=== PATIENT | female | born 1955 | race Caucasian/White ===

== ENCOUNTER 2019-04-16 05:32 | Inpatient (IN) ==
[~2019-04-16] VITALS: Ht 160 cm; Wt 79.4 kg
--- NOTE | 2019-04-16 11:30 | NUR ---
RN MS NOTES RECEIVED PT FROM 2 AMBULANCE STAFF VIA [facility] FROM [facility], PT IS ALERT AND ORIENTED, ABLE TO TRANSFER FROM [facility] TO BED, WITH COMPLAINT OF ABDOMINAL PAIN ON MOVEMENT, STATED THAT SHE DOES NOT HAVE ANY PAIN WHEN SHE IS IN BED, MADE WARM AND COMFORTABLE, ROOM SET UP ORIENTATION PROVIDED TO PT, VERBALIZED UNDERSTANDING, VITAL SIGNS TAKEN AND RECORDED, AWAITING ADMITTING ORDERS FROM MD.
[2019-04-16] MEDS ORDERED: FURO-144 PO (11:39)
[2019-04-16] MEDS ORDERED: SOFO1TAB PO (11:39)
[2019-04-16] MEDS ORDERED: MAGNESIUM HYDROXIDE 30 ML UDC PO PRN (15:00)
[2019-04-16] MEDS ORDERED: ACETAMINOPHEN 325 MG TABLET PO PRN (15:00)
[2019-04-16] MEDS ORDERED: MAG HYDROX/AL HYDROX/SIMETH 30 ML UDC PO PRN (15:00)
[2019-04-16] MEDS ORDERED: Z GUARD REMEDY 2 OZ OINT TP PRN (15:00)
[2019-04-16] MEDS ORDERED: ONDANSETRON HCL/PF 4 MG/2 ML VIAL IVP PRN (15:00)
[2019-04-16] MEDS ORDERED: HYDROCODONE/APAP 5/325MG 1 EACH TABLET PO PRN (15:00)
[2019-04-16] MEDS ORDERED: ZOLPIDEM TARTRATE 5 MG TABLET PO PRN (15:00)
[2019-04-16] MEDS ORDERED: MORPHINE SULFATE INJ 2 MG/ML DISP.SYRIN IV PRN (15:00)
[2019-04-16] MEDS: IV NS 0.9% 1,000 ML IV PRN (15:59)
[2019-04-16 16:00] VITALS: BP 116/57
[2019-04-16] MEDS: FAMOTIDINE/PF INJ 20 MG/2 ML VIAL IV SCH (17:00)
[2019-04-16 17:01] LABS: BASOPHILS # (AUTO) 0.1 /CMM (0.0-0.2); BASOPHILS % (AUTO) 1.3 % (0.0-2.0); EOSINOPHILS % (AUTO) 1.2 % (0.0-6.0); HEMATOCRIT 31 % (33-45); HEMOGLOBIN 10.2 g/dL (11.5-14.8); LYMPHOCYTES # (AUTO) 0.6 /CMM (0.8-4.8); LYMPHOCYTES % (AUTO) 12.4 % (20.0-44.0); MEAN CORPUSCULAR HGB CONC 33 g/dl (31.0-36.0); MEAN CORPUSCULAR VOLUME 110 fL (82-100); MONOCYTES # (AUTO) 0.5 /CMM (0.1-1.30); MONOCYTES % (AUTO) 11.4 % (2.0-12.0); NEUTROPHILS # (AUTO) 3.3 /CMM (1.8-8.9); NEUTROPHILS % (AUTO) 73.7 % (43.0-81.0); PLATELET COUNT (AUTO) 120 /CMM (150-450); RED BLOOD CELL COUNT(AUTO) 2.81 MIL/uL (4.0-5.2); WHITE BLOOD COUNT (AUTO) 4.5 K/uL (4.3-11.0)
--- NOTE | 2019-04-16 18:06 | NUR ---
RN MS NOTES PT IN BED, ASLEEP, EASY TO AROUSE, ALERT AND ORIENTED, NO COMPLAINT OF PAIN AT THIS TIME, NO NAUSEA OR VOMITING, ADMITTING ORDERS RECEIVED FROM DR. ROSALES, PT INFORMED OF PLAN OF CARE, VERBALIZED UNDERSTANDING, IV FLUIDS INFUSING WELL, SEEN BY MINESH TOOL ENGINE LATHE SET UP OPERATOR, ALL NEEDS ATTENDED.
[2019-04-16 18:11] LABS: THYROID STIMULATING HORMONE 3.186 uIU/mL (0.358-3.74)
[2019-04-16 18:13] LABS: ALBUMIN 1.5 g/dL (3.4-5.0); BILIRUBIN,TOTAL 1.4 mg/dL (0.2-1.0); CALCIUM, SERUM 7.4 mg/dL (8.5-10.1); CREATININE 1.1 mg/dL (0.6-1.3); PHOSPHORUS 3.1 mg/dL (2.5-4.9); POTASSIUM 3.5 mmol/L (3.5-5.1); TOTAL PROTEIN, SERUM 5.7 g/dL (6.4-8.2)
--- NOTE | 2019-04-16 19:50 | NUR ---
MS RN NOTES RECEIVED PT IN BED, ASLEEP, EASY TO AROUSE, ALERT AND ORIENTED, DENIES PAIN AT THIS TIME, NO NAUSEA OR VOMITING, IV LINE INTACT AND PATENT INFUSING WELL, REPOSITIONED FOR COMFORT, SAFETY MEASURES IN PLACE, MAINTAINED ON NPO, INSTRUCTED AND PATIENT VERBALIZES UNDERSTANDING, WILL CONTINUE TO MONITOR ACCORDINGLY,
[2019-04-16 20:42] VITALS: BP 117/55
[2019-04-16 21:10] LABS: ALBUMIN 1.5 g/dL (3.4-5.0); BILIRUBIN,DIRECT 0.8 mg/dL (0.0-0.2); BILIRUBIN,TOTAL 1.4 mg/dL (0.2-1.0); TOTAL PROTEIN, SERUM 5.8 g/dL (6.4-8.2)
[2019-04-17] MEDS: IV NS 0.9% 1,000 ML IV PRN ×2 (01:03→08:59)
--- NOTE | 2019-04-17 07:28 | NUR ---
RN NOTES ALL NEEDS ATTENDED AND MET, ABLE TO REST AND SLEEP AT INTERVALS, DENIES ANY PAIN, SAFETY MEASURES IN PLACE, RESTING COMFORTABLY AT THIS TIME, WILL ENDORSE TO AM NURSE FOR CONTINUITY OF CARE.
--- NOTE | 2019-04-17 07:30 | NUR ---
RN MS NOTES PT IN BED, ASLEEP, EASILY AROUSABLE, ALERT AND ORIENTED, DENIES PAIN, NOT IN DISTRESS, IV FLUIDS INFUSING WELL, CALL LIGHT WITHIN REACH.
[2019-04-17 07:45] LABS: ALBUMIN 1.5 g/dL (3.4-5.0); BILIRUBIN,TOTAL 1.3 mg/dL (0.2-1.0); CALCIUM, SERUM 7.4 mg/dL (8.5-10.1); CREATININE 1.1 mg/dL (0.6-1.3); MAGNESIUM 2.1 mg/dL (1.8-2.4); PHOSPHORUS 3.5 mg/dL (2.5-4.9); TOTAL PROTEIN, SERUM 5.9 g/dL (6.4-8.2)
[2019-04-17 08:00] VITALS: BP 118/52
[2019-04-17 08:08] LABS: BASOPHILS % (AUTO) 0.7 % (0.0-2.0); EOSINOPHILS % (AUTO) 1.4 % (0.0-6.0); HEMATOCRIT 33 % (33-45); HEMOGLOBIN 10.1 g/dL (11.5-14.8); LYMPHOCYTES # (AUTO) 0.7 /CMM (0.8-4.8); MEAN CORPUSCULAR HGB CONC 31 g/dl (31.0-36.0); MEAN CORPUSCULAR VOLUME 117 fL (82-100); MONOCYTES # (AUTO) 0.6 /CMM (0.1-1.30); MONOCYTES % (AUTO) 11.1 % (2.0-12.0); NEUTROPHILS # (AUTO) 3.8 /CMM (1.8-8.9); NEUTROPHILS % (AUTO) 73.8 % (43.0-81.0); PLATELET COUNT (AUTO) 123 /CMM (150-450); RED BLOOD CELL COUNT(AUTO) 2.81 MIL/uL (4.0-5.2); WHITE BLOOD COUNT (AUTO) 5.1 K/uL (4.3-11.0)
[2019-04-17] MEDS: FAMOTIDINE/PF INJ 20 MG/2 ML VIAL IV SCH ×2 (09:00→17:31)
[2019-04-17] MEDS ORDERED: PANTOPRAZOLE 40 MG VIAL IV SCH (09:00)
[2019-04-17] MEDS ORDERED: CT SWABBABLE VALVE TRANS SET 1 EA INFUS.SET MC ONE (10:33)
[2019-04-17] MEDS ORDERED: IV NS 0.9% 250 ML IV ONE (10:33)
[2019-04-17] MEDS ORDERED: IOHEXOL-300 100 ML VIAL IV ONE (10:33)
[2019-04-17 16:00] VITALS: BP 124/57
--- NOTE | 2019-04-17 19:00 | NUR ---
RN MS OPENING NOTES RECEIVED PATIENT IN BED AWAKE ALERT AND ORIENTED X4, RESPIRATIONS EVEN AND UNLABORED WITH EQUAL RISE AND FALL OF CHEST, DENIES ANY PAIN OR DISCOMFORT AT THIS TIME, IV SITE TO RIGHT AC #20G INTACT AND PATENT,NO REDNESS, NO INFILTRATION PRESENT, ORIENTED TO STAFF AND CALL LIGHT AND KEPT WITHIN REACH, SAFETY PRECAUTIONS IN PLACE, LOW BED AND LOCKED, FLUIDS OFFERED, ALL NEEDS ATTENDED AT THIS TIME, WILL CONTINUE TO MONITOR AND ATTEND TO NEEDS. AT THIS TIME PATIENT PREFERS TO HAVE IVF OFF, STATES " DRINKING ALOT OF WATER". WILL CONTINUE TO MONITOR AND ENCOURAGE.
[2019-04-17 20:00] VITALS: BP 124/79
[2019-04-17 20:24] LABS: OCCULT BLOOD STOOL NEGATIVE (NEGATIVE)
[2019-04-17 20:59] VITALS: BP 124/79
--- NOTE | 2019-04-18 06:21 | NUR ---
RN CLOSING NOTES PATIENT IN BED AWAKE ALERT AND ORIENTED X4, RESPIRATIONS EVEN AND UNLABORED WITH EQUAL RISE AND FALL OF CHEST, DENIES ANY PAIN OR DISCOMFORT AT THIS TIME, IV SITE TO RIGHT AC #20G INTACT AND PATENT,NO REDNESS, NO INFILTRATION PRESENT, IVF INTACT, CALL LIGHT KEPT WITHIN REACH, SAFETY PRECAUTIONS IN PLACE, LOW BED AND LOCKED, FLUIDS OFFERED, ALL NEEDS ATTENDED AT THIS TIME, WILL CONTINUE TO MONITOR AND ATTEND TO NEEDS, WILL CONTINUE TO MONITOR AND ENDORSE TO NEXT SHIFT..
[2019-04-18 07:20] LABS: BASOPHILS % (AUTO) 0.8 % (0.0-2.0); EOSINOPHILS % (AUTO) 1.8 % (0.0-6.0); HEMATOCRIT 28 % (33-45); HEMOGLOBIN 9.3 g/dL (11.5-14.8); LYMPHOCYTES # (AUTO) 0.6 /CMM (0.8-4.8); LYMPHOCYTES % (AUTO) 13.3 % (20.0-44.0); MEAN CORPUSCULAR HGB CONC 34 g/dl (31.0-36.0); MEAN CORPUSCULAR VOLUME 110 fL (82-100); MONOCYTES # (AUTO) 0.8 /CMM (0.1-1.30); MONOCYTES % (AUTO) 16.2 % (2.0-12.0); NEUTROPHILS # (AUTO) 3.2 /CMM (1.8-8.9); NEUTROPHILS % (AUTO) 67.9 % (43.0-81.0); PLATELET COUNT (AUTO) 110 /CMM (150-450); RED BLOOD CELL COUNT(AUTO) 2.52 MIL/uL (4.0-5.2); WHITE BLOOD COUNT (AUTO) 4.8 K/uL (4.3-11.0)
--- NOTE | 2019-04-18 07:30 | NUR ---
MS RN RECEIVED ON BED, AWAKE,ALERT,ORIENTED X2-3,NOT IN ANY FORM OF DISTRSS, RESPIRATIONS EVEN AND UNLABORED,NO SOB NOTED. LUNGS ARE CLEAR,ABDOMEN SOFT,POSITIVE BOWEL SOUDS, DENIES PAIN AT THIS TIME, WILL MONITOR PATIENT'S CONDITION.
[2019-04-18 07:46] LABS: BILIRUBIN,TOTAL 0.9 mg/dL (0.2-1.0); CALCIUM, SERUM 7.1 mg/dL (8.5-10.1); MAGNESIUM 2.1 mg/dL (1.8-2.4); PHOSPHORUS 2.2 mg/dL (2.5-4.9); POTASSIUM 4.2 mmol/L (3.5-5.1); TOTAL PROTEIN, SERUM 5.2 g/dL (6.4-8.2)
[2019-04-18 07:55] LABS: ALBUMIN 1.3 g/dL (3.4-5.0)
[2019-04-18 08:00] VITALS: BP 122/61
[2019-04-18 08:52] LABS: EOSINOPHILS % (MANUAL) 4 % (0-4); LYMPHOCYTES % (MANUAL) 8 % (16-48); MONOCYTES % (MANUAL) 12 % (0-11.0); NEUTROPHILS % (MANUAL) 76 (42-76)
--- NOTE | 2019-04-18 09:00 | NUR ---
MS REBECCA PORTILLO SERVED,DUE MEDS GIVEN,TOLERATE WELL.
--- NOTE | 2019-04-18 10:00 | NUR ---
ms rn was seen by dr. everardo osorio/ orders made and carried out.
[2019-04-18] MEDS: FAMOTIDINE/PF INJ 20 MG/2 ML VIAL IV SCH ×2 (10:01→17:27)
[2019-04-18] MEDS ORDERED: NEUTRA PHOS 1 POWD.PACKET PO ONE (12:30)
[2019-04-18] MEDS ORDERED: ALBUMIN 25% 12.5 GM/50 ML BOTTLE IV ONE (15:30)
[2019-04-18] MEDS ORDERED: ALBUMIN 25% 25 GM in PREMIX 1 EA IV ONE (15:30)
[2019-04-18 16:00] VITALS: BP 146/83
[2019-04-18 20:34] VITALS: BP 142/84
--- NOTE | 2019-04-18 22:52 | NUR ---
DISCHARGE Patient has been cleared for discharge home by . Discharge instruction given to patient by REBECCA Jarvis, patient verbalized understanding. IV peripheral cath. removed, gauze applied, no bleeding noted. Skin intact. Patient left via Taxi in stable condition. Hospital provided transportation to patient.
== END 2019-04-18 20:35 | disposition home or self-care (01) | DRG 282 ==
LOC: MED 11:23
PROVIDERS: ADMIT Hospitalist; ATTEND Hospitalist
DX: K85.10 Biliary acute pancreatitis without necrosis or infection (principal); E43 Unspecified severe protein-calorie malnutrition; D69.59 Other secondary thrombocytopenia; D68.8 Other specified coagulation defects; R18.8 Other ascites; E83.51 Hypocalcemia; E88.09 Other disorders of plasma-protein metabolism, not elsewhere classified; K74.60 Unspecified cirrhosis of liver; D50.9 Iron deficiency anemia, unspecified; K21.9 Gastro-esophageal reflux disease without esophagitis; K80.20 Calculus of gallbladder without cholecystitis without obstruction; Z86.19 Personal history of other infectious and parasitic diseases; D64.9 Anemia, unspecified; Z68.31 Body mass index [BMI] 31.0-31.9, adult; E80.6 Other disorders of bilirubin metabolism
CPT/HCPCS: 36415; 80053-TC; 80061-TC; 80076-TC; 82105; 82272-TC; 83540-TC; 83690-TC; 83735-TC; 84100-TC; 84443-TC; 85025-TC; 85730-TC; 87081-TC; A4216; G0378; J3490; J7030; J7050; P9047; Q9967